=== PATIENT | female | born 1965 | race Caucasian/White ===

== ENCOUNTER → 2016-12-27 | Outpatient (CLI) | payer BC | LOC: CIMAGING 14:58 | PROVIDERS: ATTEND Obstetrics & Gynecology | DX: R10.2 Pelvic and perineal pain (principal); D25.1 Intramural leiomyoma of uterus; Z78.0 Asymptomatic menopausal state | CPT/HCPCS: 76856-PO ==

== ENCOUNTER → 2017-01-06 | Outpatient (CLI) | payer OTHER | LOC: BRMIMAGING 10:48 | PROVIDERS: ATTEND Family Medicine | DX: Z13.820 Encounter for screening for osteoporosis (principal); M85.80 Other specified disorders of bone density and structure, unspecified site; Z78.0 Asymptomatic menopausal state ==

== ENCOUNTER → 2017-12-13 | Outpatient (CLI) | payer OTHER | LOC: CIMAGING 08:27 | DX: Z13.6 Encounter for screening for cardiovascular disorders (principal); Z82.49 Family history of ischemic heart disease and other diseases of the circulatory system; R91.1 Solitary pulmonary nodule | CPT/HCPCS: 75571-PO ==